=== PATIENT | female | born 1980 | race Caucasian/White ===

== ENCOUNTER → 2018-09-17 08:30 | Outpatient (CLI) | payer OTHER, SELFPAY ==
--- NOTE | 2018-09-17 | DI.MRI.S_ITS ---
PROCEDURE: MR LUMBAR SPINE WO CON INDICATIONS: LOW BACK PAIN TECHNIQUE: Noncontrast sagittal T1 spin echo and T2 fast echo, sagittal STIR, axial T1 and T2 fast spin echo through the lumbar spine. In cases with scoliosis, additional coronal T2 fast spin echo may be performed. COMPARISON: [facility], MR, L-SPINE WITHOUT CONTRAST, 06/27/2015, 14:51. [facility], CR, XR LUMBAR SPINE WITH OBLIQUES, 09/08/2018, 8:17. FINDINGS: Image quality: Excellent. Alignment and Curvature: 5 lumbar type vertebral bodies are present by plain film. There is mild, grade 1 anterolisthesis of L5 on S1, which is increased from the prior examination. Bone Marrow: Marrow is of normal overall signal. No acute vertebral body compression fractures. Mild reactive signal within the endplates adjacent to the L5-S1 intervertebral disc. Spinal Cord: Conus medullaris terminates at the T12-L1 disc space level. Visualized cord demonstrates normal signal and size. Paraspinous Soft Tissues: No paravertebral masses. L1-L2: Mild bilateral facet hypertrophy. No significant canal, nor foraminal stenosis. No change. L2-L3: Mild bilateral facet hypertrophy. No significant canal, nor foraminal stenosis. No change. L3-L4: Mild disc desiccation. Mild diffuse disc bulge. Mild bilateral facet hypertrophy. No significant canal, nor foraminal stenosis. No change. L4-L5: Mild bilateral facet hypertrophy. No significant canal, nor foraminal stenosis. No change. L5-S1: Moderate disc desiccation and disc height loss. Mild diffuse disc bulge. Mild bilateral facet hypertrophy. No significant canal stenosis. Severe subarticular foraminal stenosis bilaterally. Bilateral intraforaminal L5 nerve root flattening, new since the prior examination. IMPRESSION: 1. Grade I isthmic spondylolisthesis at L5-S1, as well as disc and facet disease, associated with severe bilateral L5-S1 foraminal stenosis, and bilateral intraforaminal L5 nerve root flattening. Recommend correlation with clinical symptoms to ascertain relevance of this finding. Dictated by: Sarah Mccullough M.D. on 09/17/2018 at 9:30 Approved by: Sarah Mccullough M.D. on 09/17/2018 at 9:48
== END ==
PROVIDERS: PCP Family Medicine; Visit Provider Physical Medicine & Rehabilitation Pain Medicine
DX: M54.5 Low back pain (principal); M43.17 Spondylolisthesis, lumbosacral region; M48.07 Spinal stenosis, lumbosacral region
CPT/HCPCS: 72148

== ENCOUNTER 2019-07-13 11:55 | Emergency (ER) | payer OTHER, SELFPAY ==
[2019-07-13 12:00] VITALS: BP 130/88; PULSE 84; RESP 13; TEMP 36.6; O2SAT 99
[2019-07-13 15:05] LABS: Add Manual Diff / Slide Review NO; Basophils Absolute Auto 100 /uL (0-100); Basophils Percent Auto 0.6 % (0-2); Eosinophils Absolute Auto 100 /uL (0-450); Hematocrit 39.2 % (36-46); Lymphocytes Absolute Auto 2000 /uL (1100-4500); Lymphocytes Percent Auto 22.2 % (25-40); Mean Corpuscular HGB Conc 33.2 % (30-36); Mean Corpuscular Hemoglobin 26.1 PG (26-34); Mean Corpuscular Volume 78.6 fL (80-100); Monocytes Absolute Auto 500 /uL (0-900); Monocytes Percent Auto 5.5 % (3-14); Neutrophils Absolute Auto 6300 /uL (1500-7000); Neutrophils Percent Auto 70.7 % (50-75); Platelet Count 235 X10^3/uL (150-400); Red Blood Cell Count 4.99 X10^6/uL (4.0-5.2); Red Cell Distribution Width 14.2 % (11.6-14.8); White Blood Cell Count 8.9 X10^3/uL (4.5-11.0)
[2019-07-13 15:14] LABS: Prothrombin Time 11.9 SECONDS (10.1-12.7)
[2019-07-13 15:16] LABS: PTT Partial Thromboplastin Tim 33 SECONDS (26.4-36.2)
[2019-07-13 15:17] LABS: Alanine Aminotransferase 21 IU/L (9-52); Albumin 4.7 g/dL (3.5-5.0); Albumin Globulin Ratio 1.4 (1.0-2.8); Alkaline Phosphatase 61 U/L (38-126); Aspartate Aminotransferase 35 IU/L (14-36); BUN Creatinine Ratio 11.3 (6-22); Bilirubin Total 0.6 mg/dL (0.2-1.3); Blood Urea Nitrogen 9 mg/dL (7-17); Carbon Dioxide 25 mmol/L (22-32); Chloride 103 mmol/L (98-107); Estimated Glomerular Filt Rate > 60.0 mL/min (>60); Globulin 3.4 g/dL (1.7-4.1); Glucose 87 mg/dL (70-100); HEMOLYSIS 19 (0-50); Lipase 201 U/L (23-300); Potassium 3.9 mmol/L (3.4-5.1); Sodium 141 mmol/L (137-145); Total Protein 8.1 g/dL (6.3-8.2)
--- NOTE | 2019-07-13 15:20 | DI.US.S_ITS ---
PROCEDURE: US ABDOMEN LIMITED INDICATIONS: EPIGASTRIC, RIGHT UPPER QUADRANT PAIN TECHNIQUE: Real-time focused scanning was performed of the abdomen, with image documentation. COMPARISON: None. FINDINGS: Liver measures 15.6 cm and diffusely echogenic. No focal hepatic lesion. The gallbladder is unremarkable. No wall thickening or sonographic Ellsworth sign. No bile duct dilatation. Distal common bile duct measures 4 mm. Pancreatic duct incidentally noted to measure 2 mm. IMPRESSION: Normal appearance of the gallbladder. Coarse echogenic liver suggesting diffuse hepatocellular disease/fatty infiltration. Please correlate with LFTs. Dictated by: Alejo Duran M.D. on 07/13/2019 at 16:11 Approved by: Alejo Duran M.D. on 07/13/2019 at 16:12
[2019-07-13] MEDS: SODIUM CHLORIDE 0.9% 1,000 ML 1000 ML IV (15:29)
[2019-07-13 15:35] VITALS: BP 131/75; PULSE 60; RESP 17; O2SAT 100
[2019-07-13 16:00] VITALS: BP 120/75; PULSE 68; RESP 16; O2SAT 100
[2019-07-13] MEDS: MAG HYDROX/ALUMINUM/SIMETH SUS 20 ML, LIDOCAINE VISCOUS 2% 15 ML PO (16:31)
[2019-07-13] MEDS: PANTOPRAZOLE 40 MG VIAL IV (16:32)
[2019-07-13 16:37] LABS: Amylase 86 U/L (30-110); Creatine Kinase 94 U/L (30-135)
[2019-07-13 16:49] LABS: Troponin I < 0.012 ng/mL (0.01-0.034)
[2019-07-13] MEDS: SUCRALFATE 1 GM TABLET PO (17:53)
[2019-07-13 18:18] VITALS: BP 126/67; PULSE 65; RESP 16; O2SAT 100
--- NOTE | 2019-07-13 18:51 | ED_ITS ---
HPI - Abdominal Pain <SHASHA Noel - Last Filed: 07/13/19 20:31> General Chief Complaint: Abdominal Pain Stated Complaint: abdominal pain Time Seen by Provider: 07/13/19 14:44 Source: patient and family Mode of arrival: Ambulatory Limitations: no limitations History of Present Illness HPI narrative: The patient is a 38-year-old female nonsmoker with history of acid reflux who presents with her for chief complaint of epigastric pain. It started at 1:00 a.m.. She denies any fevers nausea vomiting or diarrhea. She had her last bowel movement this morning. She tried Protonix and Rolaids which did not help. She states it feels likes our stomach. Patient states that she takes a lot of ibuprofen, coffee, acidic foods and spicy foods. She denies radiation. She states it is worse when she presses on her stomach. She denies any history of diverticulitis or pancreatitis. She denies any chest pain or shortness of breath. She denies any previous abdominal surgery. Related Data Home Medications Medication Instructions Recorded Confirmed fexofenadine [Meera Allergy] 180 mg PO QPM 07/13/19 07/13/19 levonorgestrel [Mirena] 1 device INTRAUTERINE .ONCE 07/13/19 07/13/19 lorazepam 1 mg PO PRN PRN 07/13/19 07/13/19 sertraline 150 mg PO QPM 07/13/19 07/13/19 zolpidem [Ambien] 10 mg PO BEDTIME PRN 07/13/19 07/13/19 Previous Rx's Medication Instructions Recorded omeprazole 40 mg PO DAILY #20 cap 07/13/19 sucralfate 1 gram PO QACHS #40 tab 07/13/19 Allergies Allergy/AdvReac Type Severity Reaction Status Date / Time No Known Drug Allergies Allergy Verified 07/13/19 16:52 Review of Systems <SHASHA Noel - Last Filed: 07/13/19 20:31> Review of Systems Narrative: GENERAL: Denies chills, fatigue, malaise, fever, sweats. HEENT: Denies sinus pain, ear pain, sore throat, difficulty swallowing, dizziness. RESPIRATORY: Denies dyspnea, cough, wheezing, hemoptysis, sputum. CARDIOVASCULAR: Denies chest pain, palpitations, orthopnea, edema, GASTROINTESTINAL: See HPI : Denies dysuria, frequency, incontinence, hematuria, urinary retention. MUSCULOSKELETAL: denies weakness, joint pain, or bony pain SKIN: Denies rash, skin lesions, or other NEUROLOGIC: Denies weakness, headache, numbness, change in speech, confusion, seizures, incoordination. PSYCHIATRIC: No concerning psychosocial issues. 12 point review of systems is negative except for those stated above PFSH <SHASHA Noel - Last Filed: 07/13/19 20:31> Medical History (Updated 07/13/19 @ 20:28 by SHASHA Noel) GERD (gastroesophageal reflux disease) (Acute) Social History (Updated 07/13/19 @ 20:28 by SHASHA Noel) marital status: Social History (Updated 07/13/19 @ 20:28 by SHASHA Noel) marital status: Exam <SHASHA Noel - Last Filed: 07/13/19 20:31> Narrative Exam Narrative: GENERAL: Obese female in no acute distress HEAD: Atraumatic. Normocephalic. No temporal or scalp tenderness. EYES: Pupils equal round and reactive. Extraocular motions intact. No scleral icterus. No injection or drainage. ENT: Nose without bleeding, purulent drainage or septal hematoma. Throat without erythema, tonsillar hypertrophy or exudate. Uvula midline. Airway patent. NECK: Trachea midline. No JVD or lymphadenopathy. Supple, nontender, no meningeal signs. CARDIOVASCULAR: Regular rate and rhythm without murmurs, gallops, or rubs. RESPIRATORY: Clear to auscultation. Breath sounds equal bilaterally. No wheezes, rales, or rhonchi. No cough. No increased respiratory effort. No accessory muscle use GASTROINTESTINAL: Abdomen soft, , nondistended. No hepato-splenomegaly, or palpable masses. Positive Ellsworth sign. Active bowel sounds all 4 quadrants. Pain to palpation epigastric area. EXTREMITIES: No clubbing, cyanosis, or edema. No joint tenderness, effusion, or edema noted. BACK: Nontender without deformity or crepitance. No flank tenderness. NEURO: AOx3. SKIN: No rash or erythema. Initial Vital Signs Initial Vital Signs: Vital Signs Temperature 97.9 F 07/13/19 12:00 Pulse Rate 84 07/13/19 12:00 Respiratory Rate 13 07/13/19 12:00 Blood Pressure 130/88 07/13/19 12:00 Pulse Oximetry 99 07/13/19 12:00 <Yakelin Decker DO - Last Filed: 07/15/19 18:06> Initial Vital Signs Initial Vital Signs: Vital Signs Temperature 97.9 F 07/13/19 12:00 Pulse Rate 84 07/13/19 12:00 Respiratory Rate 13 07/13/19 12:00 Blood Pressure 130/88 07/13/19 12:00 Pulse Oximetry 99 07/13/19 12:00 Course <LIS Noel-BC - Last Filed: 07/13/19 20:31> Orders Ordered: Discontinued Medications Al Hydrox/Mg Hydrox/Simethicone 20 ml/ Lidocaine HCl 15 ml 0 ml PO NOW ONE Stop: 07/13/19 16:23 Last Admin: 07/13/19 16:31 Dose: 15 ml Documented by: RILEY Sodium Chloride (Normal Saline 0.9%) 1,000 mls @ 1,000 mls/hr IV BOLUS ONE Stop: 07/13/19 16:19 Last Infusion: 07/13/19 16:52 Dose: 0 mls/hr Documented by: Admin: 07/13/19 15:29 Dose: 1,000 mls/hr Documented by: NEYDA Ondansetron HCl (Zofran) 4 mg IV NOW ONE Stop: 07/13/19 15:21 Last Admin: 07/13/19 18:52 Dose: Not Given Documented by: RILEY Pantoprazole Sodium (Protonix) 40 mg IV NOW ONE Stop: 07/13/19 16:23 Last Admin: 07/13/19 16:32 Dose: 40 mg Documented by: RILEY Sucralfate (Carafate) 1 gm PO ACHS ONE Stop: 07/13/19 17:20 Last Admin: 07/13/19 17:53 Dose: 1 gm Documented by: RILEY Vital Signs Vital signs: Vital Signs - 8 hr 07/13/19 15:35 07/13/19 16:00 07/13/19 18:18 Pulse Rate 60 68 65 Respiratory Rate 17 16 16 Blood Pressure [Right Arm] 131/75 120/75 126/67 Pulse Oximetry 100 100 100 <Yakelin Decker DO - Last Filed: 07/15/19 18:06> Orders Ordered: Discontinued Medications Al Hydrox/Mg Hydrox/Simethicone 20 ml/ Lidocaine HCl 15 ml 0 ml PO NOW ONE Stop: 07/13/19 16:23 Last Admin: 07/13/19 16:31 Dose: 15 ml Documented by: RILEY Sodium Chloride (Normal Saline 0.9%) 1,000 mls @ 1,000 mls/hr IV BOLUS ONE Stop: 07/13/19 16:19 Last Infusion: 07/13/19 16:52 Dose: 0 mls/hr Documented by: Admin: 07/13/19 15:29 Dose: 1,000 mls/hr Documented by: NEYDA Ondansetron HCl (Zofran) 4 mg IV NOW ONE Stop: 07/13/19 15:21 Last Admin: 07/13/19 18:52 Dose: Not Given Documented by: RILEY Pantoprazole Sodium (Protonix) 40 mg IV NOW ONE Stop: 07/13/19 16:23 Last Admin: 07/13/19 16:32 Dose: 40 mg Documented by: RILEY Sucralfate (Carafate) 1 gm PO ACHS ONE Stop: 07/13/19 17:20 Last Admin: 07/13/19 17:53 Dose: 1 gm Documented by: RILEY Vital Signs Vital signs: Vital Signs - 8 hr 07/13/19 15:35 07/13/19 16:00 07/13/19 18:18 Pulse Rate 60 68 65 Respiratory Rate 17 16 16 Blood Pressure [Right Arm] 131/75 120/75 126/67 Pulse Oximetry 100 100 100 MDM - Abdominal Pain <SHASHA Noel - Last Filed: 07/13/19 20:31> Lab Data Result diagrams: 07/13/19 15:00 07/13/19 15:00 Labs: Lab Results 07/13/19 07/13/19 07/13/19 Range/Units 15:00 15:00 15:00 WBC 8.9 (4.5-11.0) X10^3/uL RBC 4.99 (4.0-5.2) X10^6/uL Hgb 13.0 (12.0-16.0) g/dL Hct 39.2 (36-46) % MCV 78.6 L (80-100) fL MCH 26.1 (26-34) PG MCHC 33.2 (30-36) % RDW 14.2 (11.6-14.8) % Plt Count 235 (150-400) X10^3/uL Neut % (Auto) 70.7 (50-75) % Lymph % (Auto) 22.2 L (25-40) % [place] % (Auto) 5.5 (3-14) % Eos % (Auto) 1.0 L (2-4) % Baso % (Auto) 0.6 (0-2) % Neut # (Auto) 6300 (7108-9432) /uL Lymph # (Auto) 2000 (1168-0592) /uL [place] # (Auto) 500 (0-900) /uL Eos # (Auto) 100 (0-450) /uL Baso # (Auto) 100 (0-100) /uL PT 11.9 (10.1-12.7) SECONDS INR 1.0 (0.9-1.3) APTT 33 (26.4-36.2) SECONDS Sodium 141 (137-145) mmol/L Potassium 3.9 (3.4-5.1) mmol/L Chloride 103 (98-107) mmol/L Carbon Dioxide 25 (22-32) mmol/L BUN 9 (7-17) mg/dL Creatinine 0.80 (0.52-1.04) mg/dL Estimated GFR > 60.0 (>60) mL/min BUN/Creatinine Ratio 11.3 (6-22) Glucose 87 (70-100) mg/dL Calcium 10.0 (8.4-10.2) mg/dL Total Bilirubin 0.6 (0.2-1.3) mg/dL AST 35 (14-36) IU/L ALT 21 (9-52) IU/L Alkaline Phosphatase 61 (38-126) U/L Total Creatine Kinase (30-135) U/L CK-MB (CK-2) CK-MB (CK-2) Rel Index Troponin I (0.01-0.034) ng/mL Total Protein 8.1 (6.3-8.2) g/dL Albumin 4.7 (3.5-5.0) g/dL Globulin 3.4 (1.7-4.1) g/dL Albumin/Globulin Ratio 1.4 (1.0-2.8) Amylase (30-110) U/L Lipase 201 (23-300) U/L 07/13/19 07/13/19 Range/Units 15:00 15:00 WBC (4.5-11.0) X10^3/uL RBC (4.0-5.2) X10^6/uL Hgb (12.0-16.0) g/dL Hct (36-46) % MCV (80-100) fL MCH (26-34) PG MCHC (30-36) % RDW (11.6-14.8) % Plt Count (150-400) X10^3/uL Neut % (Auto) (50-75) % Lymph % (Auto) (25-40) % [place] % (Auto) (3-14) % Eos % (Auto) (2-4) % Baso % (Auto) (0-2) % Neut # (Auto) (2043-7150) /uL Lymph # (Auto) (7338-3300) /uL [place] # (Auto) (0-900) /uL Eos # (Auto) (0-450) /uL Baso # (Auto) (0-100) /uL PT (10.1-12.7) SECONDS INR (0.9-1.3) APTT (26.4-36.2) SECONDS Sodium (137-145) mmol/L Potassium (3.4-5.1) mmol/L Chloride (98-107) mmol/L Carbon Dioxide (22-32) mmol/L BUN (7-17) mg/dL Creatinine (0.52-1.04) mg/dL Estimated GFR (>60) mL/min BUN/Creatinine Ratio (6-22) Glucose (70-100) mg/dL Calcium (8.4-10.2) mg/dL Total Bilirubin (0.2-1.3) mg/dL AST (14-36) IU/L ALT (9-52) IU/L Alkaline Phosphatase (38-126) U/L Total Creatine Kinase 94 (30-135) U/L CK-MB (CK-2) TNP CK-MB (CK-2) Rel Index TNP Troponin I < 0.012 (0.01-0.034) ng/mL Total Protein (6.3-8.2) g/dL Albumin (3.5-5.0) g/dL Globulin (1.7-4.1) g/dL Albumin/Globulin Ratio (1.0-2.8) Amylase 86 (30-110) U/L Lipase (23-300) U/L Point of care testing: Point of Care Testing Test Results Negative Urine Dip Bedside Urine Glucose Negative Bedside Urine Bilirubin - Negative Bedside Urine Ketone - Negative Urine Specific Delta 1.015 Bedside Urine Occult Blood - Negative Bedside Urine pH 6.0 Bedside Urine Protein - Negative Bedside Urine Urobilinogen - Negative Bedside Urine Nitrite - Negative Bedside Urine Leukocytes - Negative Esterase Imaging Data US - abdomen: Radiologist's impression: [address] [address] Ultrasound Report Signed Patient: Sophy Hinson [facility]#: [id number] : 1980Acct:[id number] Age/Sex: 38 / FDate of Service: 07/13/19 Loc: ED Accession Number: [id number] Procedure: US abdomen limited Ordering Provider: Yakelin Mackay PROCEDURE: US ABDOMEN LIMITED INDICATIONS: EPIGASTRIC, RIGHT UPPER QUADRANT PAIN TECHNIQUE: Real-time focused scanning was performed of the abdomen, with image documentation. COMPARISON: None. FINDINGS: Liver measures 15.6 cm and diffusely echogenic. No focal hepatic lesion. The gallbladder is unremarkable. No wall thickening or sonographic Ellsworth sign. No bile duct dilatation. Distal common bile duct measures 4 mm. Pancreatic duct incidentally noted to measure 2 mm. IMPRESSION: Normal appearance of the gallbladder. Coarse echogenic liver suggesting diffuse hepatocellular disease/fatty in filtration. Please correlate with LFTs. Dictated by: Alejo Duran M.D. on 07/13/2019 at 16:11 Approved by: Alejo Duran M.D. on 07/13/2019 at 16:12 ECG Data Attestation: I personally reviewed and interpreted this ECG as follows: Interpretation: Ventricular rate 58. Sinus bradycardia. No ST elevation or depression noted. No ectopy noted. P.r. interval 160. QRS duration 91. Viewed by Dr.Mank JARAMILLO Narrative Medical decision making narrative: The patient is a 38 year female who presents with chief complaint of epigastric pain that started at 1:00 a.m.. EKG and troponin were taken to rule out any cardiac etiology in both came back within normal limits. Given her pain to palpation of right upper quadrant, I obtained an ultrasound to rule out possible cholecystitis or gallbladder issues. This showed no acute gallbladder issues. Ultrasound noted possible coarse echogenic liver, but the patient does not have any elevated LFTs at this point time. The patient was given IV fluids, GI cocktail, Protonix and felt some improvement. She felt further improvement with Carafate. I believe his though she is developing an early gastritis given her chronic ibuprofen use combined with very acidic foods. I gave her prescriptions of omeprazole as well as Carafate. I discussed at length dietary changes with her. Discussed at length following up with primary care provider. She felt much improved in the emergency department after all of her medications. Discussed coming back to emergency department for any acute concerns such as concern of chest pain, shortness of breath, abdominal pain with fever. Patient has no questions or concerns upon discharge, states understanding of follow-up as well as return precautions. <Yakelin Decker, DO - Last Filed: 07/15/19 18:06> Lab Data Labs: Lab Results 07/13/19 07/13/19 07/13/19 Range/Units 15:00 15:00 15:00 WBC 8.9 (4.5-11.0) X10^3/uL RBC 4.99 (4.0-5.2) X10^6/uL Hgb 13.0 (12.0-16.0) g/dL Hct 39.2 (36-46) % MCV 78.6 L (80-100) fL MCH 26.1 (26-34) PG MCHC 33.2 (30-36) % RDW 14.2 (11.6-14.8) % Plt Count 235 (150-400) X10^3/uL Neut % (Auto) 70.7 (50-75) % Lymph % (Auto) 22.2 L (25-40) % [place] % (Auto) 5.5 (3-14) % Eos % (Auto) 1.0 L (2-4) % Baso % (Auto) 0.6 (0-2) % Neut # (Auto) 6300 (2415-9822) /uL Lymph # (Auto) 2000 (0255-6333) /uL [place] # (Auto) 500 (0-900) /uL Eos # (Auto) 100 (0-450) /uL Baso # (Auto) 100 (0-100) /uL PT 11.9 (10.1-12.7) SECONDS INR 1.0 (0.9-1.3) APTT 33 (26.4-36.2) SECONDS Sodium 141 (137-145) mmol/L Potassium 3.9 (3.4-5.1) mmol/L Chloride 103 (98-107) mmol/L Carbon Dioxide 25 (22-32) mmol/L BUN 9 (7-17) mg/dL Creatinine 0.80 (0.52-1.04) mg/dL Estimated GFR > 60.0 (>60) mL/min BUN/Creatinine Ratio 11.3 (6-22) Glucose 87 (70-100) mg/dL Calcium 10.0 (8.4-10.2) mg/dL Total Bilirubin 0.6 (0.2-1.3) mg/dL AST 35 (14-36) IU/L ALT 21 (9-52) IU/L Alkaline Phosphatase 61 (38-126) U/L Total Creatine Kinase (30-135) U/L CK-MB (CK-2) CK-MB (CK-2) Rel Index Troponin I (0.01-0.034) ng/mL Total Protein 8.1 (6.3-8.2) g/dL Albumin 4.7 (3.5-5.0) g/dL Globulin 3.4 (1.7-4.1) g/dL Albumin/Globulin Ratio 1.4 (1.0-2.8) Amylase (30-110) U/L Lipase 201 (23-300) U/L 07/13/19 07/13/19 Range/Units 15:00 15:00 WBC (4.5-11.0) X10^3/uL RBC (4.0-5.2) X10^6/uL Hgb (12.0-16.0) g/dL Hct (36-46) % MCV (80-100) fL MCH (26-34) PG MCHC (30-36) % RDW (11.6-14.8) % Plt Count (150-400) X10^3/uL Neut % (Auto) (50-75) % Lymph % (Auto) (25-40) % [place] % (Auto) (3-14) % Eos % (Auto) (2-4) % Baso % (Auto) (0-2) % Neut # (Auto) (5909-9164) /uL Lymph # (Auto) (4931-3964) /uL [place] # (Auto) (0-900) /uL Eos # (Auto) (0-450) /uL Baso # (Auto) (0-100) /uL PT (10.1-12.7) SECONDS INR (0.9-1.3) APTT (26.4-36.2) SECONDS Sodium (137-145) mmol/L Potassium (3.4-5.1) mmol/L Chloride (98-107) mmol/L Carbon Dioxide (22-32) mmol/L BUN (7-17) mg/dL Creatinine (0.52-1.04) mg/dL Estimated GFR (>60) mL/min BUN/Creatinine Ratio (6-22) Glucose (70-100) mg/dL Calcium (8.4-10.2) mg/dL Total Bilirubin (0.2-1.3) mg/dL AST (14-36) IU/L ALT (9-52) IU/L Alkaline Phosphatase (38-126) U/L Total Creatine Kinase 94 (30-135) U/L CK-MB (CK-2) TNP CK-MB (CK-2) Rel Index TNP Troponin I < 0.012 (0.01-0.034) ng/mL Total Protein (6.3-8.2) g/dL Albumin (3.5-5.0) g/dL Globulin (1.7-4.1) g/dL Albumin/Globulin Ratio (1.0-2.8) Amylase 86 (30-110) U/L Lipase (23-300) U/L Point of care testing: Point of Care Testing Test Results Negative Urine Dip Bedside Urine Glucose Negative Bedside Urine Bilirubin - Negative Bedside Urine Ketone - Negative Urine Specific Delta 1.015 Bedside Urine Occult Blood - Negative Bedside Urine pH 6.0 Bedside Urine Protein - Negative Bedside Urine Urobilinogen - Negative Bedside Urine Nitrite - Negative Bedside Urine Leukocytes - Negative Esterase Discharge Plan Departure Patient Disposition: Home Clinical Impression: Abdominal pain Qualifiers: Abdominal location: epigastric Qualified Code(s): R10.13 - Epigastric pain Discharge Date/Time: 07/13/19 19:01 Instructions: Gastritis (Alternative Therapy), Gastroesophageal Reflux Disease (Alternative Therapy), DI for Gastroesophageal Reflux Disease (GERD), DI for Gastritis, DI for Abdominal Pain-Adult, GERD Diet Activity Restrictions/Additional Instructions: Please follow up with primary care provider in the next few days. Please decrease the amount of acid in your diet, avoid spicy foods, avoid coffee and soda, avoid deep find fatty foods. Please avoid NSAIDs such as ibuprofen. Please start the omeprazole every day. Please come back to emergency department for any acute concerns such as abdominal pain with fever, concern of heart attack or stroke etc. Prescriptions: New omeprazole 40 mg capsule,delayed release(DR/EC) 40 mg PO DAILY Qty: 20 RF: 0 sucralfate 1 gram tablet 1 gram PO QACHS Qty: 40 RF: 0 No Action Mirena 20 mcg/24 hours (5 yrs) 52 mg Intrauterine Device 1 device INTRAUTERINE .ONCE RF: 0 sertraline 100 mg Tablet 150 mg PO QPM RF: 0 fexofenadine [Meera Allergy] 180 mg Tablet 180 mg PO QPM RF: 0 lorazepam 1 mg Tablet 1 mg PO PRN PRN (Reason: Anxiety) RF: 0 zolpidem [Ambien] 10 mg Tablet 10 mg PO BEDTIME PRN (Reason: Insomnia) RF: 0 Referrals: Evon Haas DO [Primary Care Provider] -
== END 2019-07-13 19:01 | disposition home or self-care (01) ==
PROVIDERS: Emergency Provider Nurse Practitioner Family; PCP Family Medicine
DX: R10.13 Epigastric pain (principal)
CPT/HCPCS: 36415; 76705; 80053; 81003; 81025; 82150; 82550; 83690; 84484; 85025; 85610; 85730; 93005; 96361; 96374; 99283; 99285; C9113

== ENCOUNTER → 2020-11-09 17:45 | Outpatient (CLI) | payer OTHER, SELFPAY ==
--- NOTE | 2020-11-09 | DI.MRI.S_ITS ---
PROCEDURE: MR PELVIS WO CON INDICATIONS: Coccyx pain TECHNIQUE: Noncontrast axial and oblique coronal T1 spin echo and STIR through the sacroiliac joints. COMPARISON: [facility] Outside Film, CT, CT PELVIS WITHOUT CONTRAST, 07/11/2020, 13:24. FINDINGS: Image quality: Excellent. Bones: Redemonstrated S5 segment sacral fracture is again noted in unchanged alignment. There is associated mild marrow edema. Minimal surrounding soft tissue edema is seen. The sacroiliac joints appear intact. No adjacent bone marrow edema to suggest active sacroiliitis. No bony ankylosis. No suspicious marrow space occupying lesions. Lower lumbar spondylosis and grade 1 anterolisthesis of L5 on S1. Soft tissues: No presacral masses. Rectum appears normal in caliber and wall thickness. No pathologic free pelvic fluid. There is presumed bilateral physiologic ovarian follicular change. IMPRESSION: Grossly unchanged alignment of sacral fracture (S5 level) since 07/11/20. Associated mild residual marrow edema is noted. Lower lumbar spondylosis and spondylolisthesis as above. Dictated by: Alejo Duran M.D. on 11/10/2020 at 10:08 Approved by: Alejo Duran M.D. on 11/10/2020 at 10:18
== END ==
PROVIDERS: PCP Family Medicine; Referring Provider Family Medicine; Visit Provider Family Medicine
DX: M53.3 Sacrococcygeal disorders, not elsewhere classified (principal); M43.17 Spondylolisthesis, lumbosacral region; M47.817 Spondylosis without myelopathy or radiculopathy, lumbosacral region
CPT/HCPCS: 72195

== ENCOUNTER → 2020-12-07 18:55 | Outpatient (CLI) | payer OTHER, SELFPAY ==
--- NOTE | 2020-12-07 | DI.MRI.S_ITS ---
PROCEDURE: MR LUMBAR SPINE WO CON INDICATIONS: RADICULOPATHY, LUMBAR REGION TECHNIQUE: Noncontrast sagittal T1 spin echo and T2 fast echo, sagittal STIR, axial T1 and T2 fast spin echo through the lumbar spine. In cases with scoliosis, additional coronal T2 fast spin echo may be performed. COMPARISON: [facility] Outside Film, CT, CT LUMBAR SPINE WITHOUT CONTRAST, 07/11/2020, 13:24. [facility] [place], CR, XR LUMBAR SPINE WITH OBLIQUES, 09/08/2018, 8:17. [facility], MR, MR LUMBAR SPINE WO CON, 09/17/2018, 8:51. FINDINGS: Image quality: Excellent. Alignment and Curvature: There is grade 2 anterolisthesis at L5-S1 measuring up to 8 mm which appears increased from the prior study. Bone Marrow: Marrow is of normal overall signal. No acute vertebral body compression fractures. There is increased reactive endplate edema at L5-S1. Bilateral pars defects redemonstrated at L5-S1. Spinal Cord: Conus medullaris terminates at the L1 level. Visualized cord demonstrates normal signal and size. Paraspinous Soft Tissues: No paravertebral masses. T12-L1: Normal appearance. L1-L2: Preserved disc signal and disc height. There is mild facet arthropathy and ligamentum flavum hypertrophy. No spinal canal or neural foraminal narrowing. L2-L3: Preserved disc signal and disc height. There is mild facet arthropathy and ligamentum flavum hypertrophy. No spinal canal or neural foraminal narrowing. L3-L4: Minimal loss of disc height posteriorly. There is mild to moderate facet arthropathy and ligamentum flavum hypertrophy. No spinal canal or neural foraminal narrowing. L4-L5: Preserved disc signal and disc height. No spinal canal narrowing. There is minimal bilateral neural foraminal narrowing. L5-S1: Severe loss of disc height, increased from the prior study. There is mild facet arthropathy. No spinal canal narrowing. There is severe bilateral neural foraminal narrowing with apparent impingement of the exiting L5 nerve roots. IMPRESSION: 1. Pars defects at L5 with grade 2 anterolisthesis which appears increased compared to the prior study. 2. Severe degenerative disc disease at L5-S1 also increased from the prior study. Associated severe bilateral neural foraminal narrowing appears slightly increased from the prior study. Dictated by: Dante Marroquin M.D. on 12/08/2020 at 8:39 Approved by: Dante Marroquin M.D. on 12/08/2020 at 9:00
== END ==
PROVIDERS: PCP Family Medicine; Referring Provider Family Medicine; Visit Provider Family Medicine
DX: M51.17 Intervertebral disc disorders with radiculopathy, lumbosacral region (principal); M48.07 Spinal stenosis, lumbosacral region; M43.17 Spondylolisthesis, lumbosacral region
CPT/HCPCS: 72148

== ENCOUNTER → 2022-02-26 15:53 | Outpatient (CLI) | payer OTHER, SELFPAY ==
--- NOTE | 2022-02-26 15:55 | DI.ECHO.S_ITS ---
[facility] +---------+ : : [address] : : : : [id number] : : : : Phone: [phone]+ Echocardiogram Report + + :Name: CARLYLE ZAMORA Study Date: 02/26/2022 Height: 64 in : :[facility] ReadingLocation: Weight: 187 lb : : Gender: Female BSA: 1.9 m2 : :: 1980 Age: 41 yrs BP: 129/72 mmHg: :Reason For Study: MURMUR : :Ordering Physician: ABBY, : :GUNNER Performed By: Qian Marquis : :Referring: GUNNER MORA : + + Interpretation Summary Normal sinus rhythm. Normal LV size and wall thickness. Normal wall motion and ventricular systolic function. Ejection fraction is 55-60%. No significant valvular abnormalities. Normal chamber sizes. No soure of murmur found. Procedure: A two-dimensional transthoracic echocardiogram with color flow and Doppler was performed. The study quality was technically adequate. There is no prior echocardiogram noted for this patient. The patient was in sinus rhythm with heart rates between 62-79 bpm during the exam. Left Ventricle: The left ventricle is normal in size and wall thickness. The ejection fraction is estimated to be 60-65%. Right Ventricle: The right ventricle grossly appears normal in size with probable normal systolic function. Atria: The left atrium is moderately dilated. Right atrial size is normal. There is no Doppler evidence for an interatrial shunt. Mitral Valve: The mitral valve is normal in structure and function. There is mild mitral regurgitation. Aortic Valve: The aortic valve is trileaflet. The aortic valve opens well. There is no aortic valve stenosis. No aortic regurgitation is present. Tricuspid Valve: The tricuspid valve is normal in structure and function. There is mild tricuspid regurgitation. Pulmonic Valve: The pulmonic valve leaflets are thin and pliable; valve motion is normal. There is no pulmonic valvular regurgitation. Great Vessels: The aortic root is normal size. The dimensions of the ascending aorta are normal. The IVC is of normal diameter and collapses greater than 50% with a sniff. This suggests a low right atrial pressure of 3 mm Hg. Pericardium/ Pleura There is no pericardial effusion. There is no pleural effusion. MMode/2D Measurements & Calculations LVIDd: 5.0 cm LVOT diam: 1.9 cm LVIDs: 3.6 cm Ao root diam: 2.4 cm FS: 28.5 % asc Aorta Diam: 2.4 cm IVSd: 0.76 cm Ao Arch Diam (Prox Trans): 2.5 cm LVPWd: 0.70 cm LV min. diameter/BSA (cm/m^2): 2.6 LV sys. diameter/BSA (cm/m^2): 1.9 LA A2 area: 23.8 cm2 RA long axis: 4.9 cm LA A4 area: 20.2 cm2 RA area: 13.7 cm2 LA length (vol): 5.3 cm RA vol: 32.6 ml LA vol: 76.9 ml RA : 17.2 ml/m2 LA vol index: 40.4 ml/m2 IVC diam: 1.2 cm RVD1 (basal): 3.6 cm RVD2 (mid): 3.3 cm Doppler Measurements & Calculations Ao V2 max: 190.5 cm/sec LVOT Max Edwina: 127.3 cm/sec Ao V2 mean: 125.9 cm/sec LV V1 max P.5 mmHg Ao max P.5 mmHg LV V1 VTI: 27.7 cm Ao mean P.4 mmHg TERESO(I,D): 1.8 cm2 Ao V2 VTI: 41.8 cm TERESO(V,D): 1.8 cm2 sev ratio: 0.66 TERESO indexed to BSA (cm^2/m^2): 0.96 MV E max edwina: 115.7 cm/sec TR max edwina: 229.1 cm/sec MV A max edwina: 82.5 cm/sec TR max P.0 mmHg MV E/A: 1.4 PA V2 max: 131.8 cm/sec Med Peak E' Edwina: 9.8 cm/sec PA V2 mean: 91.6 cm/sec E/E' med: 11.8 PA mean P.7 mmHg Lat Peak E' Edwina: 14.3 cm/sec PA pr(Accel): 22.5 mmHg E/E' lat: 8.1 E/e' average: 9.9 MV dec time: 0.22 sec SV(DEEPIKA): 76.4 ml Electronically signed by: Faustina Pandya M.D. on Reading Physician:02/27/2022 05:20 PM
== END ==
PROVIDERS: PCP Family Medicine; Referring Provider Physician Assistant; Visit Provider Physician Assistant
DX: I08.1 Rheumatic disorders of both mitral and tricuspid valves (principal); R01.1 Cardiac murmur, unspecified
CPT/HCPCS: 93306

== ENCOUNTER → 2022-09-03 08:30 | Outpatient (CLI) | payer OTHER, SELFPAY ==
--- NOTE | 2022-09-03 | DI.CT.S_ITS ---
PROCEDURE: CT ABDOMEN W CON INDICATIONS: Gastritis, unspecified, without bleeding TECHNIQUE: After the administration of intravenous contrast, axial sections acquired from the diaphragm to the iliac crests. Coronal and sagittal reformats were performed. For radiation dose reduction, the following was used: automated exposure control, adjustment of mA and/or kV according to patient size. COMPARISON: [facility], MR, MR PELVIS WO CON, 11/09/2020, 17:57. FINDINGS: Image quality: Excellent. Lung bases: No pleural effusion. Heart: No significant findings. Bilateral breast implants. Liver: No focal lesion. Gallbladder: Not distended. Biliary ducts: Unremarkable. Pancreas: Unremarkable. Spleen: Unremarkable. Adrenal Glands: No nodule. Kidneys and Ureters: No hydronephrosis. Suspect small right peripelvic cysts. Stomach and Bowel: Stomach, small bowel loops, and colon are unremarkable. Normal appendix.4 Peritoneum: No abnormal intraperitoneal fluid. No free air. Ventral Wall: Tiny umbilical hernia. Abdominal Nodes: No retroperitoneal or mesenteric adenopathy by size criteria. Vessels: Aorta and inferior vena cava are normal in size. Suspect small right ovarian cyst. Bones: No suspicious lesion. L5-S1 fixation hardware. IMPRESSION: No acute abnormality seen. No free fluid. Dictated by: Jose Zuleta M.D. on 09/03/2022 at 11:53 Approved by: Jose Zuleta M.D. on 09/03/2022 at 11:59
== END ==
PROVIDERS: PCP Family Medicine; Referring Provider Registered Nurse; Visit Provider Registered Nurse
DX: K29.70 Gastritis, unspecified, without bleeding (principal); R74.8 Abnormal levels of other serum enzymes
CPT/HCPCS: 74160; Q9967

== ENCOUNTER → 2023-08-26 16:49 | Outpatient (CLI) | payer OTHER, SELFPAY ==
--- NOTE | 2023-08-26 | DI.MRI.S_ITS ---
PROCEDURE: MR ANKLE RT WO CON INDICATIONS: PAIN IN RT ANKLE JOINT TECHNIQUE: Noncontrast sagittal T1 spin echo and T2 fast spin echo with fat saturation, axial proton density fast spin echo and T2 fast spin echo with fat saturation, coronal T1 spin echo and T2 fast spin echo with fat saturation through the ankle/hindfoot. COMPARISON: [facility], CR, XR ANKLE 3 VIEWS WEIGHT BEARING RIGHT, 08/16/2023, 14:01. [facility], MR, ANKLE WITHOUT CONTRAST, 03/22/2017, 8:46. FINDINGS: Image quality: Excellent. Bones and joints: 2 suture anchors are noted involving anterolateral portion of talus with susceptibility artifacts. There is no gross marrow edema. No fracture or dislocation. No hindfoot coalitions. No osteochondral injuries of the talar dome. There is small to moderate amount of tibiotalar joint and subtalar joint effusion. No gross intra-articular loose bodies. Medial structures: The posterior tibialis, flexor digitorum longus, and flexor hallucis longus tendons are intact. Small amount of fluid is seen distending flexor tendon sheath. The posterior tibial neurovascular bundle appears normal within the tarsal tunnel, without extrinsic mass effect. The deltoid ligament and spring ligament are thickened. Lateral structures: There is prior ATFL repair. There is suggestion of high-grade partial to full-thickness rupture involving anterior talofibular ligament at its tibial insertion. The calcaneofibular, and posterior talofibular ligaments appear thickened with intrasubstance T2 hyperintense signal. More superiorly, the anterior and posterior tibiofibular ligaments appear mildly thickened with intrasubstance T2 hyperintense signal. The tibiofibular syndesmosis is normal in width at 2 mm or less. The peroneus longus and brevis tendons are thickened with subtle intrasubstance T2 hyperintense signal at the level of lateral malleolus tip extending to the level of calcaneocuboid joint. Adjacent bony peroneal tubercle and retrotrochlear prominence are normal in size. The sinus tarsi demonstrates normal fatty signal, without edema, fibrosis, or cyst formation. Visualized sinus tarsi components (cervical ligament, interosseous talocalcaneal ligament, roots of the inferior extensor retinaculum) appear normal. The calcaneonavicular and calcaneocuboid components of the bifurcate ligament appear intact. The dorsal calcaneocuboid ligament appears intact. Anterior structures: The tibialis anterior, extensor hallucis longus, and extensor digitorum longus tendons appear intact. The dorsal talonavicular ligament appears intact. Posterior and plantar structures: Achilles tendon is intact. Medial and lateral bands of the plantar fascia are of normal thickness. No abductor digiti quinti muscle atrophy to suggest Ybarra neuropathy. IMPRESSION: 1. There is prior ATFL repair with postsurgical changes in anterolateral portion of talus. No gross marrow edema. No acute fracture or dislocation. No osteochondral injuries of talar dome. 2. Suggestion of high-grade partial to full-thickness rupture involving ATFL at its tibial insertion. Sprain/low to moderate grade partial-thickness tear involving rest of the lateral ankle ligaments. 3. Low-grade medial ankle ligament sprain. 4. Low to moderate grade tendinosis involving peroneus tendons at the level of lateral malleolus tip extending to the level of calcaneocuboid joint. Suggestion of low-grade tenosynovitis involving flexor tendons. Dictated by: Desmond Prieto M.D. on 08/27/2023 at 9:49 Approved by: Desmond Prieto M.D. on 08/27/2023 at 9:59
== END ==
PROVIDERS: PCP Nurse Practitioner Family; Referring Provider Physician Assistant; Visit Provider Physician Assistant
DX: S93.491A Sprain of other ligament of right ankle, initial encounter (principal); M25.571 Pain in right ankle and joints of right foot
CPT/HCPCS: 73721

== ENCOUNTER 2025-05-03 14:59 | Emergency (ER) | payer OTHER, SELFPAY ==
[2025-05-03 15:15] VITALS: BP 136/79; PULSE 95; RESP 17; TEMP 36.9; O2SAT 100; BMI 24.5
--- NOTE | 2025-05-03 21:55 | ED.BACK ---
HPI - Back Pain/Injury General Chief Complaint: Back Pain/Injury Stated Complaint: Sacral pelvic pain since morning Time Seen by Provider: 05/03/25 21:55 Source: patient History of Present Illness HPI Narrative: 44-year-old female complains of coccygeal area and right buttock area pain since this morning, increasing through the day. No injury or new activities recalled. Hurts with movement and attempts to walk. No bowel or bladder incontinence. No tingling to legs or perineal region. History of remote L5/S1 spinal surgery. History of remote coccygeal fracture that was treated without surgery. No incontinence of urine or stool. Related Data Home Medications ?Medication ?Instructions ?Recorded ?Confirmed fexofenadine 180 mg tablet 180 mg PO QPM 07/13/19 07/13/19 (Meera Allergy) levonorgestrel 21 mcg/24 hr (up to 1 device intrauterine .ONCE 07/13/19 07/13/19 8 years) 52 mg intrauterine device (Mirena) lorazepam 1 mg tablet 1 mg PO PRN PRN Anxiety 07/13/19 07/13/19 sertraline 100 mg tablet 150 mg PO QPM 07/13/19 07/13/19 zolpidem 10 mg tablet (Ambien) 10 mg PO BEDTIME PRN Insomnia 07/13/19 07/13/19 Previous Rx's ?Medication ?Instructions ?Recorded omeprazole 40 mg capsule,delayed 40 mg PO DAILY #20 caps 07/13/19 release sucralfate 1 gram tablet 1 gram PO QACHS #40 tabs 07/13/19 hydrocodone 5 mg-acetaminophen 325 1 tab PO Q6H PRN pain #14 tabs 05/04/25 mg tablet methocarbamol 500 mg tablet 500 mg PO TID 7 days #21 tabs 05/04/25 Allergies Allergy/AdvReac Type Severity Reaction Status Date / Time metoclopramide (From Reglan) AdvReac Anxiety Verified 05/03/25 15:15 promethazine (From Phenergan) AdvReac Anxiety Verified 05/03/25 15:15 Patient History Medical History (Updated 05/04/25 @ 00:33 by Joel Fuentes MD) GERD (gastroesophageal reflux disease) Social History (Updated 07/13/19 @ 20:28 by EREN Noel) marital status: Smoking Status: Never smoker Smoking Status: Never smoker Exam Narrative Exam Narrative: GENERAL: Well-developed patient, in moderate distress, walking with baby steps to do right gluteal and coccygeal area pain. HEAD: Atraumatic. Normocephalic. EYES: Pupils equal round and reactive. Extraocular motions intact. No scleral icterus. No injection or drainage. ENT: Nose without bleeding, purulent drainage. Throat without erythema, tonsillar hypertrophy or exudate. Airway patent. NECK: Trachea midline. Non tender CARDIOVASCULAR: Regular rate and rhythm without murmurs, gallops, or rubs. RESPIRATORY: Clear to auscultation. Breath sounds equal bilaterally. No wheezes, rales, or rhonchi. GASTROINTESTINAL: Abdomen soft, non-tender, nondistended. EXTREMITIES: No edema or joint tenderness. BACK: No midline lumbar tenderness, nor tenderness significant to right or left paraspinal musculature lumbar spine. Tenderness right SI joint, and along gluteal sciatic groove, also tenderness in the region of the coccygeal tip without visible redness or mass or fluctuance or crepitance. NEURO: AOx3. Motor functions grossly nonfocal. SKIN: No rash or erythema of visible areas Initial Vital Signs Initial Vital Signs: Vital Signs Temperature 98.5 F 05/03/25 15:15 Pulse Rate 95 H 05/03/25 15:15 Respiratory Rate 17 05/03/25 15:15 Blood Pressure 136/79 05/03/25 15:15 Pulse Oximetry 100 05/03/25 15:15 Oxygen Delivery Method Room Air 05/03/25 15:15 Course Orders Ordered: ED Orders 05/03/25 22:17 CT abdomen pelvis wo con Stat 05/03/25 22:20 CBC Auto Diff [Complete Blood Count AUTO DIFF] Stat CMP [Comprehensive Metabolic Panel] Stat Discontinued Medications Hydrocodone Bitart/Acetaminophen (Hydrocodone/Acet 5/325 Prepack) 1 bottle MISC DIRECTED ONE Stop: 05/03/25 23:21 Last Admin: 05/04/25 00:16 Dose: 1 bottle Documented By: DENAE Diazepam (Diazepam 10 Mg/2 Ml Syringe) 5 mg IV NOW ONE Stop: 05/03/25 22:17 Last Admin: 05/03/25 22:49 Dose: 5 mg Documented By: DENAE Hydromorphone HCl (Hydromorphone Hcl 0.5 Mg/0.5 Ml Syringe) 0.5 mg IV NOW ONE Stop: 05/03/25 22:17 Last Admin: 05/03/25 22:51 Dose: 0.5 mg Documented By: DENAE Ketorolac Tromethamine (Ketorolac 30 Mg/Ml Vial) 15 mg IV NOW ONE Stop: 05/03/25 22:17 Last Admin: 05/03/25 22:48 Dose: 15 mg Documented By: DENAE Methocarbamol (Methocarbamol 500 Mg Tablet) 500 mg PO NOW ONE Stop: 05/03/25 23:21 Last Admin: 05/04/25 00:16 Dose: 500 mg Documented By: DENAE Vital Signs Vital signs: Vital Signs - 8 hr 05/04/25 00:12 Pulse Rate 85 Respiratory Rate 16 Blood Pressure 104/56 L Pulse Oximetry 99 Oxygen Delivery Method Room Air MDM - Back Pain/Injury Lab Data 05/03/25 22:20 05/03/25 22:20 Labs: Lab Results 05/03/25 Range/Units 22:20 WBC 6.1 (4.5-11.0) X10^3/uL RBC 4.34 (4.0-5.2) X10^6/uL Hgb 12.2 (12.0-16.0) g/dL Hct 36.3 (36-46) % MCV 83.6 (80-100) fL MCH 28.2 (26-34) PG MCHC 33.7 (30-36) % RDW 13.0 (11.6-14.8) % Plt Count 181 (150-400) X10^3/uL Neut % (Auto) 59.9 (50-75) % Lymph % (Auto) 31.2 (25-40) % [place] % (Auto) 6.1 (3-14) % Eos % (Auto) 1.4 L (2-4) % Baso % (Auto) 1.4 (0-2) % Neut # (Auto) 3600 (2211-4111) /uL Lymph # (Auto) 1900 (2442-3361) /uL [place] # (Auto) 400 (0-900) /uL Eos # (Auto) 100 (0-450) /uL Baso # (Auto) 100 (0-100) /uL Sodium 140 (137-145) mmol/L Potassium 3.6 (3.4-5.1) mmol/L Chloride 111 H (98-107) mmol/L Carbon Dioxide 18 L (22-32) mmol/L BUN 13 (7-17) mg/dL Creatinine 0.91 (0.52-1.04) mg/dL Estimated GFR > 60 (>60) mL/min BUN/Creatinine Ratio 14.3 (6-22) Glucose 93 (70-99) mg/dL Calcium 8.9 (8.4-10.2) mg/dL Total Bilirubin 0.3 (0.2-1.3) mg/dL AST 22 (14-36) IU/L ALT 25 (<35) IU/L Alkaline Phosphatase 45 (38-126) U/L Total Protein 7.1 (6.3-8.2) g/dL Albumin 4.5 (3.5-5.0) g/dL Globulin 2.6 (1.7-4.1) g/dL Albumin/Globulin Ratio 1.7 (1.0-2.8) Point of Care Testing Test Results Negative Urine Dip Bedside Urine Glucose Negative Bedside Urine Bilirubin - Negative Bedside Urine Ketone - Negative Urine Specific [place] 1.015 Bedside Urine Occult Blood - Negative Bedside Urine pH 7.0 Bedside Urine Protein - Negative Bedside Urine Urobilinogen - Negative Bedside Urine Nitrite - Negative Bedside Urine Leukocytes - Negative Esterase Imaging Data CT scan - abdomen/pelvis: Radiologist's Impression: [place] [address] CT Scan Report Signed Patient: Sophy Hinson MR#: [id number] : 1980 Acct:[id number] Age/Sex: 44 / F Date of Service: 05/03/25 Loc: ED Accession Number: [id number] Procedure: CT abdomen pelvis wo con Ordering Provider: Joel Fuentes MD PROCEDURE: CT ABDOMEN PELVIS WO CON INDICATIONS: sacral/coccyx pain, hx L5/S1 surgery, coccyx fx TECHNIQUE: CT of the abdomen and pelvis was obtained without intravenous contrast. Coronal and sagittal reformats were performed. For radiation dose reduction, the following was used: automated exposure control, adjustment of mA and/or kV according to patient size. COMPARISON: [facility], CT, CT ABDOMEN W CON, 09/03/2022, 10:08. FINDINGS: Image quality: Diagnostic. Lower Chest: No significant findings. ABDOMEN: Liver: No contour-deforming mass. Gallbladder: No radiopaque gallstones or wall thickening. Biliary ducts: No biliary dilation. Pancreas: No ductal dilation. Spleen: Size is within normal limits. Adrenal Glands: No adrenal nodules. Kidneys and Ureters: No hydronephrosis. No contour-deforming mass. Stomach and Bowel: Normal colonic caliber, without significant wall thickening. Peritoneum: Dependent pelvic fluid. No free air. Ventral Wall: No significant hernia. Abdominal Nodes: No retroperitoneal or mesenteric adenopathy by size criteria. Vessels: Aorta and inferior vena cava are normal in size. PELVIS: Pelvic Organs: IUD. Bladder: Unremarkable. Pelvic Nodes: No enlarged lymph nodes. Miscellaneous: No inguinal hernias are seen. Bones: No aggressive osseous abnormality. Anterior L5-S1 fusion with prosthetic disc. Hardware is intact without hardware fracture or periprosthetic lucency to suggest loosening. Alignment is stable. IMPRESSION: No visualized cause sacral coccyx pain. Dictated by: Maria Victoria Ochoa M.D. on 05/03/2025 at 22:42 Approved by: Maria Victoria Ochoa M.D. on 05/03/2025 at 22:52 [facility] Narrative Medical decision making narrative: 44-year-old female with nontraumatic new pain coccygeal tip and right buttock area. History of remote L5/S1 surgery for spondylolisthesis and chronic back pain, also prior coccygeal fracture treated medically. Tenderness to coccygeal tip without redness or crepitance. Tenderness along right sciatic groove. No significant tenderness mid lumbar or paraspinal lumbar spine. IV Toradol, Dilaudid, Zofran, Valium. CT abdomen and pelvis. CT pelvis shows no lumbar spine or gluteal or coccygeal or other abnormalities. See radiology report. Patient has improvement of symptoms. Takes lithium, we will avoids NSAIDs. Discharge with home pack hydrocodone/APAP, prescription for short supply. Trial of Robaxin/methocarbamol muscle relaxant, prescription sent to her pharmacy. Home with family. Return precautions discussed. Discharge Plan Departure Patient Disposition: Home Clinical Impression: Sciatica of right side, Coccyx pain Instructions: DI for Sciatica Activity Restrictions/Additional Instructions: History of remote lumbar surgery, prior coccygeal fracture injury also remote. New pain in the coccygeal tip without recent injury. Also pain and discomfort to the right sciatic area in the buttock and adjacent sacroiliac region. CT abdomen and pelvis showed no lumbar or sacral or pelvic or hip pathology to explain current symptoms. No coccygeal area abscess or fractures noted either. Trial of pain medication and muscle relaxants. IV therapies given in the emergency department with some improvement. Trial of muscle relaxant and pain medication for discharge. Recheck with your regular doctor later this week. Return to this/nearest emergency department for any change worsening symptoms or any concerns prior. Prescriptions: New methocarbamol 500 mg tablet 500 mg PO TID 7 Days Qty: 21 0RF hydrocodone-acetaminophen 5-325 mg tablet 1 tab PO Q6H PRN (Reason: pain) Qty: 14 0RF No Action Mirena 20 mcg/24 hours (5 yrs) 52 mg Intrauterine Device 1 device INTRAUTERINE .ONCE sertraline 100 mg Tablet 150 mg PO QPM fexofenadine [Meera Allergy] 180 mg Tablet 180 mg PO QPM lorazepam 1 mg Tablet 1 mg PO PRN PRN (Reason: Anxiety) zolpidem [Ambien] 10 mg Tablet 10 mg PO BEDTIME PRN (Reason: Insomnia) omeprazole 40 mg capsule,delayed release(DR/EC) 40 mg PO DAILY Qty: 20 0RF sucralfate 1 gram tablet 1 gram PO QACHS Qty: 40 0RF Referrals: Melody Rapp ARNP, RN [Primary Care Provider, Emergency Medicine] Stand Alone Forms: Patient Portal/API
--- NOTE | 2025-05-03 22:17 | DI.CT.S_ITS ---
PROCEDURE: CT ABDOMEN PELVIS WO CON INDICATIONS: sacral/coccyx pain, hx L5/S1 surgery, coccyx fx TECHNIQUE: CT of the abdomen and pelvis was obtained without intravenous contrast. Coronal and sagittal reformats were performed. For radiation dose reduction, the following was used: automated exposure control, adjustment of mA and/or kV according to patient size. COMPARISON: [facility], CT, CT ABDOMEN W CON, 09/03/2022, 10:08. FINDINGS: Image quality: Diagnostic. Lower Chest: No significant findings. ABDOMEN: Liver: No contour-deforming mass. Gallbladder: No radiopaque gallstones or wall thickening. Biliary ducts: No biliary dilation. Pancreas: No ductal dilation. Spleen: Size is within normal limits. Adrenal Glands: No adrenal nodules. Kidneys and Ureters: No hydronephrosis. No contour-deforming mass. Stomach and Bowel: Normal colonic caliber, without significant wall thickening. Peritoneum: Dependent pelvic fluid. No free air. Ventral Wall: No significant hernia. Abdominal Nodes: No retroperitoneal or mesenteric adenopathy by size criteria. Vessels: Aorta and inferior vena cava are normal in size. PELVIS: Pelvic Organs: IUD. Bladder: Unremarkable. Pelvic Nodes: No enlarged lymph nodes. Miscellaneous: No inguinal hernias are seen. Bones: No aggressive osseous abnormality. Anterior L5-S1 fusion with prosthetic disc. Hardware is intact without hardware fracture or periprosthetic lucency to suggest loosening. Alignment is stable. IMPRESSION: No visualized cause sacral coccyx pain. Dictated by: Maria Victoria Ochoa M.D. on 05/03/2025 at 22:42 Approved by: Maria Victoria Ochoa M.D. on 05/03/2025 at 22:52
[2025-05-03 22:31] LABS: Add Manual Diff / Slide Review NO; Hematocrit 36.3 % (36-46); Hemoglobin 12.2 g/dL (12.0-16.0); Lymphocytes Absolute Auto 1900 /uL (1100-4500); Mean Corpuscular HGB Conc 33.7 % (30-36); Mean Corpuscular Hemoglobin 28.2 PG (26-34); Mean Corpuscular Volume 83.6 fL (80-100); Platelet Count 181 X10^3/uL (150-400)
[2025-05-03] MEDS: KETOROLAC 30 MG/ML VIAL 15 MG IV (22:48)
[2025-05-03 22:52] LABS: Alanine Aminotransferase 25 IU/L (<35); Albumin 4.5 g/dL (3.5-5.0); Albumin Globulin Ratio 1.7 (1.0-2.8); Alkaline Phosphatase 45 U/L (38-126); Blood Urea Nitrogen 13 mg/dL (7-17); Calcium 8.9 mg/dL (8.4-10.2); Carbon Dioxide 18 mmol/L (22-32); Chloride 111 mmol/L (98-107); Estimated Glomerular Filt Rate > 60 mL/min (>60); Globulin 2.6 g/dL (1.7-4.1); Glucose 93 mg/dL (70-99); HEMOLYSIS < 15 (0-50); Potassium 3.6 mmol/L (3.4-5.1); Sodium 140 mmol/L (137-145); Total Protein 7.1 g/dL (6.3-8.2)
[2025-05-04 00:12] VITALS: BP 104/56; PULSE 85; RESP 16; O2SAT 99
[2025-05-04] MEDS: HYDROCODONE/ACET 5/325 PREPACK 1 BOTTLE MISC (00:16)
== END 2025-05-04 00:39 | disposition home or self-care (01) ==
PROVIDERS: Emergency Provider Emergency Medicine; PCP Nurse Practitioner Family
DX: M54.31 Sciatica, right side (principal); M53.3 Sacrococcygeal disorders, not elsewhere classified
CPT/HCPCS: 36415; 74176; 80053; 81003; 81025; 85025; 96374; 96375; 99284; J1171; J1885; J3360